=== PATIENT | male | born 1970 | race American Indian/Alaskan Native ===

== ENCOUNTER 2016-09-23 11:54 | Emergency (ER) | payer MEDICAID ==
[2016-09-23 12:00] VITALS: RESP 18
--- NOTE | 2016-09-23 13:35 | C.PDOC ---
History Of Present Illness 46 year old patient presents to the ED requesting detox from alcohol and heroin. Patient reports he snorts 2 bags a day of heroin and drink alcohol daily. His last use of heroin was 2 days ago and last drink of alcohol was last night. Patient denies fever, chills, chest pain, shortness of breath, nausea, vomiting or headache. Time Seen by Provider: 09/23/16 12:51 Chief Complaint (Nursing): Substance Abuse History Per: Patient History/Exam Limitations: no limitations Onset/Duration Of Symptoms: Other Suicide/Self Injury Attempted (Context): None Modifying Factor(s): Alcohol, Other (heroin) Severity: None Pain Scale Rating Of: 0 Recent travel outside of the [place]: No Past Medical History Reviewed: Historical Data, Nursing Documentation, Vital Signs Vital Signs: Last Vital Signs Temp 98 F 09/23/16 14:01 Pulse 70 09/23/16 14:01 Resp 18 09/23/16 14:01 BP 120/70 09/23/16 14:01 Pulse Ox 100 09/23/16 14:01 Family History: States: Unknown Family Hx - Social History Hx Alcohol Use: Yes Hx Substance Use: Yes - Immunization History Hx Tetanus Toxoid Vaccination: No Hx Influenza Vaccination: No Hx Pneumococcal Vaccination: No Review Of Systems Except As Marked, All Systems Reviewed And Found Negative. Constitutional: Negative for: Fever, Chills Cardiovascular: Negative for: Chest Pain Respiratory: Negative for: Shortness of Breath Gastrointestinal: Negative for: Nausea, Vomiting Neurological: Negative for: Headache Physical Exam - Physical Exam Appears: Non-toxic, No Acute Distress Skin: Warm, Dry Head: Atraumatic, Normacephalic Neck: Normal ROM, Supple Chest: Symmetrical Cardiovascular: Rhythm Regular Respiratory: No Accessory Muscle Use Back: Normal Inspection Extremity: Normal ROM Neurological/Psych: Oriented x3 ED Course And Treatment O2 Sat by Pulse Oximetry: 100 (room air) Pulse Ox Interpretation: Normal Progress Note: Crisis spoke to the patient at bedside. There are no detox beds available at this time. Phone number was given to call and make a reservation. A list of other detox facilities was also provided. Disposition - Disposition Disposition: HOME/ ROUTINE Disposition Time: 13:34 Condition: STABLE Additional Instructions: Follow up with detox as indicated by crisis team. Instructions: Opioid Dependence (ED) Forms: General Discharge Instructions - POA Present On Arrival: None - Clinical Impression Clinical Impression: Drug dependence - Scribe Statement The provider has reviewed the documentation as recorded by the Scribe Sheila Nettles All medical record entries made by the Scribe were at my direction and personally dictated by me. I have reviewed the chart and agree that the record accurately reflects my personal performance of the history, physical exam, medical decision making, and the department course for this patient. I have also personally directed, reviewed, and agree with the discharge instructions and disposition.
[2016-09-23 14:02] VITALS: BP 120/70; PULSE 70; TEMP 98; O2SAT 100
== END 2016-09-23 14:02 | disposition home or self-care (01) ==
LOC: C.ER 11:54
DX: F11.20 Opioid dependence, uncomplicated (principal)

== ENCOUNTER 2016-09-28 11:59 | Emergency (ER) | payer MEDICAID ==
[2016-09-28 12:16] VITALS: RESP 16
--- NOTE | 2016-09-28 12:54 | C.PDOC ---
History Of Present Illness 46-year-old male, presents to the emergency department requesting detox from alcohol. Patient denies any medical or psychiatric complaints at this time. Last drink was yesterday. Time Seen by Provider: 09/28/16 12:26 Chief Complaint (Nursing): Substance Abuse History Per: Patient History/Exam Limitations: no limitations Past Medical History Reviewed: Historical Data, Nursing Documentation, Vital Signs Vital Signs: Last Vital Signs Temp 98.6 F 09/28/16 13:12 Pulse 88 09/28/16 13:12 Resp 16 09/28/16 13:12 BP 123/65 09/28/16 13:12 Pulse Ox 96 09/28/16 14:10 Family History: States: Unknown Family Hx - Social History Hx Alcohol Use: Yes Hx Substance Use: Yes (heroin inh) - Immunization History Hx Tetanus Toxoid Vaccination: No Hx Influenza Vaccination: No Hx Pneumococcal Vaccination: No Review Of Systems Except As Marked, All Systems Reviewed And Found Negative. Constitutional: Negative for: Fever Cardiovascular: Negative for: Chest Pain Respiratory: Negative for: Shortness of Breath Gastrointestinal: Negative for: Vomiting Musculoskeletal: Negative for: Back Pain Psych: Negative for: Depression, Suicidal ideation Physical Exam - Physical Exam Appears: Non-toxic, No Acute Distress Head: Atraumatic Eye(s): bilateral: Normal Inspection Neck: Normal ROM Cardiovascular: Rhythm Regular Respiratory: Normal Breath Sounds Gastrointestinal/Abdominal: Normal Exam, Soft, No Tenderness Extremity: Normal ROM Extremity: Bilateral: Atraumatic Neurological/Psych: Oriented x3, Normal Speech Gait: Steady ED Course And Treatment O2 Sat by Pulse Oximetry: 96 Progress Note: Case was discussed w/ drug abuse worker, who states that there are no detox beds available. Patient made aware; Pt will be discharged w/ a list of detox programs, and information for the detox co-ordinator/instructions for pre- screening process. Patient is agreeable with plan. All questions answered. Disposition - Disposition Disposition: HOME/ ROUTINE Disposition Time: 12:52 Condition: STABLE Additional Instructions: Please call for detox beds [phone] Or cll other programs Return to ER if worse Instructions: Polysubstance Abuse (ED) - Clinical Impression Clinical Impression: Drug dependence - Scribe Statement The provider has reviewed the documentation as recorded by the Scriblilliam Frye All medical record entries made by the Scribe were at my direction and personally dictated by me. I have reviewed the chart and agree that the record accurately reflects my personal performance of the history, physical exam, medical decision making, and the department course for this patient. I have also personally directed, reviewed, and agree with the discharge instructions and disposition.
[2016-09-28 13:14] VITALS: BP 123/65; PULSE 88; TEMP 98.6
[2016-09-28 14:01] VITALS: O2SAT 96
== END 2016-09-28 13:12 | disposition home or self-care (01) ==
LOC: C.ER 11:59
DX: F19.20 Other psychoactive substance dependence, uncomplicated (principal)

== ENCOUNTER 2016-10-03 14:13 | Inpatient (IN) | payer MEDICAID ==
--- NOTE | 2016-10-03 14:38 | C.PDOC ---
History Of Present Illness A 46 year old male presents to the emergency room. Patient was pre-screened for detox. Patient admits to using heroine yesterday and ETOH this morning. Patient denies any active complaints. Time Seen by Provider: 10/03/16 14:30 Chief Complaint (Nursing): Substance Abuse History Per: Patient History/Exam Limitations: no limitations Onset/Duration Of Symptoms: Hrs Current Symptoms Are (Timing): Still Present Modifying Factor(s): Alcohol, Other (Heroine) Severity: None Associated Symptoms: denies: Depression, Suicidal Thoughts, Suicidal Plan Recent travel outside of the [place]: No Past Medical History Reviewed: Historical Data, Nursing Documentation, Vital Signs Vital Signs: Last Vital Signs Temp 97.8 F 10/03/16 17:07 Pulse 72 10/03/16 17:07 Resp 18 10/03/16 17:07 BP 133/80 10/03/16 17:07 Pulse Ox 99 10/03/16 17:07 Family History: States: Unknown Family Hx - Social History Hx Alcohol Use: Yes Hx Substance Use: Yes - Immunization History Hx Tetanus Toxoid Vaccination: No Hx Influenza Vaccination: No Hx Pneumococcal Vaccination: No Review Of Systems Except As Marked, All Systems Reviewed And Found Negative. Constitutional: Positive for: Other (Pre-screened for detox). Negative for: Fever, Chills Gastrointestinal: Negative for: Nausea, Vomiting, Diarrhea Physical Exam - Physical Exam Appears: Non-toxic Skin: Warm, Dry, No Rash Head: Atraumatic, Normacephalic Cardiovascular: Rhythm Regular Respiratory: Normal Breath Sounds, No Rales, No Rhonchi, No Wheezing Gastrointestinal/Abdominal: Soft, No Tenderness Extremity: Normal ROM, No Tenderness Neurological/Psych: Oriented x3, Normal Speech, Normal Cognition ED Course And Treatment - Laboratory Results Result Diagrams: 10/03/16 14:44 10/03/16 14:44 O2 Sat by Pulse Oximetry: 99 Medical Decision Making Medical Decision Making: Plan: -- Labs/Urinalysis pt medically cleared. Disposition - Disposition Disposition: HOSPITALIZED Disposition Time: 02:00 Condition: STABLE - Clinical Impression Clinical Impression: Opiate use, Alcohol use disorder - Scribe Statement The provider has reviewed the documentation as recorded by the Scribe Justin Orlando All medical record entries made by the Scribe were at my direction and personally dictated by me. I have reviewed the chart and agree that the record accurately reflects my personal performance of the history, physical exam, medical decision making, and the department course for this patient. I have also personally directed, reviewed, and agree with the discharge instructions and disposition. Decision To Admit - Pt Status Changed To: Hospital Disposition Of: Inpatient - Admit Certification Admit to Inpatient:: After my assessment, the patient will require hospitalization for at least two midnights. This is because of the severity of symptoms shown, intensity of services needed, and/or the medical risk in this patient being treated as an outpatient. - InPatient: Physician Admission Certification: I certify that this patient requires 2 or more midnights of care for the following reason:: pt needs detox - . Bed Request Type: Detox Admitting Physician: Karolina Olson Patient Diagnosis: Opiate use, Alcohol use disorder
[2016-10-03 14:52] LABS: BASO # 0.1 K/uL (0.0-0.2); BASO % 0.8 % (0.0-2.0); EOS # 0.2 K/uL (0.0-0.7); EOS % 2.4 % (0.0-4.0); HEMATOCRIT 42.1 % (35.0-51.0); LYMPH # 2.4 K/uL (1.0-4.3); LYMPH % 27.8 % (20.0-40.0); MEAN CORPUSCULAR HGB CONC 32.9 g/dL (33.0-37.0); MEAN PLATELET VOLUME 9.2 fL (7.2-11.7); MONO # 0.6 K/uL (0.0-0.8); MONO % 6.6 % (0.0-10.0); RED CELL DISTRIBUTION WIDTH 13.7 % (11.5-14.5); WHITE BLOOD COUNT 8.6 K/uL (4.8-10.8)
[2016-10-03 14:59] LABS: RBC URINE < 1 /hpf (0-3); URINE BILIRUBIN NEGATIVE (NEGATIVE); URINE BLOOD NEGATIVE (NEGATIVE); URINE COLOR Yellow (YELLOW); URINE GLUCOSE (UA) NORMAL (Normal); URINE KETONE NEGATIVE (NEGATIVE); URINE LEUKOCYTE ESTERASE NEG Leu/uL (Negative); URINE PROTEIN NEGATIVE (NEGATIVE); URINE UROBILINOGEN NORMAL mg/dL (0.2-1.0); WBC URINE 1 /hpf (0-5)
[2016-10-03 15:23] LABS: CHLORIDE 105 mmol/L (98-107); POTASSIUM 4.4 mmol/L (3.6-5.2); SODIUM 140 mmol/L (132-148)
[2016-10-03 15:25] LABS: BILIRUBIN,TOTAL 0.7 mg/dL (0.2-1.3); CARBON DIOXIDE 23 mmol/L (22-30); GFR AFRICAN-AMERICAN > 60
[2016-10-03 15:26] LABS: ALB/GLOB RATIO 1.2 (1.0-2.1); ALCOHOL SERUM 17 mg/dl (0-10); ALKALINE PHOSPHATASE 47 U/L (38-126); ALT/SGPT 32 U/L (21-72); AST/SGOT 33 U/L (17-59); BLOOD UREA NITROGEN 14 mg/dL (9-20); CALCIUM 8.5 mg/dl (8.6-10.4); GLUCOSE,RANDOM 120 mg/dL (75-110); TOTAL PROTEIN 6.9 g/dL (6.3-8.3)
[2016-10-03] MEDS ORDERED: Aluminum Hydroxide/Magnesium Hydroxide Susp (30 mL) PO PRN (19:24)
--- NOTE | 2016-10-05 01:34 | PCM.PSYCH ---
Initial Psychiatric Evaluation - Initial Psychiatric Evaluation Legal Status: Capacity Chief Complaint (in patient's own words): i am glad i got a bed! Patient's Reaction to Hospitalization: i know i needed help History of Present Illness and Precipitating Events: Pt is a 46 nyear oldv single,domiciled, currently unemployed male who abuses heroin and alcohol. Pt started drinking age 17 and alcohol became a problem age 21. He usually drinks 8-12 24 ounce cans of beer a day and severalshots of hard liquor. Pt uses crack/cocaine and started using about age 29. He spends 400-500 dollars a week. pt started using heroin last year. his girlfiend introduced him to the substance. Pt has been at [facility] and [facility] as well as [facility]. He graduated from the [employer] program last year.Pt went up to 11th grade. He usually works retail. pt has 4 children with different partners. His youngest child is 2 years old. His parents are living. He has 1 brother and 3 sisters. he is r4th in the sibship of 5. Pt denies any family history of mental illness or substance abuse. pt has no psych history. pt has been arrested various times for possession of CDS. Current Medications: Active Medications Generic Name Dose Route Start Last Admin Trade Name Freq PRN Reason Stop Dose Admin Al Hydrox/Mg Hydrox/Simethicone 30 ml 10/03/16 19:24 Maalox 30 Ml PO TID PRN Indigestion / Heartburn Chlordiazepoxide 25 mg 10/04/16 09:42 10/05/16 00:54 Librium PO 10/08/16 09:41 Not Given Q6 ENID Taper Clonidine HCl 0.1 mg 10/03/16 19:24 Catapres PO Q8 PRN COWS Score More or Equal to 5 Gabapentin 300 mg 10/03/16 20:00 10/04/16 17:05 Neurontin PO 300 mg TID ENID Administration Hydroxyzine HCl 50 mg 10/03/16 19:24 Atarax PO Q6H PRN Anxiety Ibuprofen 600 mg 10/03/16 19:24 Motrin Tab PO Q6H PRN Pain, moderate (4-7) Loperamide HCl 2 mg 10/03/16 19:24 Imodium PO Q8 PRN Diarrhea Ondansetron HCl 4 mg 10/03/16 19:24 Zofran Tab PO Q8 PRN Nausea/Vomiting Trazodone HCl 100 mg 10/03/16 19:24 Desyrel PO HS PRN Insomnia Past Psychiatric History - Past Psychiatric History Previous Treatment History: None Pertinent Medical Hx (Current Medical&Sleep Prob, Allergies): Allergies Allergy/AdvReac Type Severity Reaction Status Date / Time No Known Allergies Allergy Verified 10/03/16 14:16 No Known Home Med 09/23/16 Review of Systems - Constitutional Constitutional: Chills, Sweats, Malaise - EENT Eyes: UNREMARKABLE Ears: UNREMARKABLE Nose/Mouth/Throat: UNREMARKABLE - Cardiovascular Cardiovascular: UNREMARKABLE - Respiratory Respiratory: UNREMARKABLE - Gastrointestinal Gastrointestinal: Diarrhea - Genitourinary Genitourinary: UNREMARKABLE - Reproductive: Male Reproductive:Male: UNREMARKABLE - Musculoskeletal Musculoskeletal: Arthralgias, Myalgias - Integumentary Integumentary: UNREMARKABLE - Neurological Neurological: UNREMARKABLE - Psychiatric Psychiatric: UNREMARKABLE - Hematologic/Lymphatic Hematologic: UNREMARKABLE Mental Status Examination - Personal Presentation Personal Presentation: Looks stated age - Affect Affect: Constricted - Motor Activity Motor Activity: Calm - Reliability in Providing Information Reliability in Providing Information: Good - Speech Speech: Organized, Coherent - Mood Mood: Anxious - Formal Thought Process Formal Thought Process: No Impairment - Obsessions/Compulsions Obsessions: No Compulsions: No - Cognitive Functions Orientation: Person, Place, Situation, Time Sensorium: Alert Attention/Concentration: Attentive Abstract Thinking: As evidence by literal perception of proverbs Estimate of Intelligence: Average Judgement: Intact, as evidence by: Good judgement Memory: Recent intact, as evidence by: 3/3 object recall, Remote intact, as evidenced by: Ability to recall historical events - Risk Risk: Withdrawal - Strength & Assets Inventory Strength & Assets Inventory: Intelligence, Employment history - Limitations Limitations: Other Additional comments: unemployment DSM 5 DX - DSM 5 DSM 5 Diagnosis: alcohol use disorder severe alcohol withdrawal cocaine use disorder severe - Recommended/Plan of Treatment Treatment Recommendations and Plan of Treatment: alcohol withdrawal librium protocol alcohol use disorfer- group milieu and recreational therapy, mi cbt and individual supportive psychotherapy cocaine use disorder group, milieu and recreational therapy HI CBT individual supportive psychotherapy Projected ELOS: 5 days Prognosis: good with treatment Discharge Plan and Discharge Criteria: [facility] no acute signs of withdrawal - Smoking Cessation Smoking Cessation Initiated: No
[2016-10-05 15:53] VITALS: RESP 18
--- NOTE | 2016-10-05 21:25 | PCM.PYCHPN ---
Psychiatric Progress Note - Psychiatric Progress Note Patient seen today, length of contact: 15 min Patient Chief Complaint: i feel awful Problems Identified/Issues Discussed: withdrawal symptoms. Post Acute withdrawal syndrome after care [facility] Medical Problems: nothing acute Diagnostic Results: reviewed DSM 5 Symptoms Update: reviewed body aches improved sleeping Medication Change: Yes (taper) Medical Record Reviewed: Yes Mental Status Examination - Cognitive Function Orientation: Person, Place, Time Memory: Intact Attention: WNL Concentration: WNL Association: WNL - Mood Mood: Anxious - Affect Affect: Constricted - Speech Speech: Appropriate - Formal Thought Process Formal Thought Process: No Impairment - Suicidal Ideation Suicidal Ideation: No - Homicidal Ideation Homicidal Ideation: No Goal/Treatment Plan - Goal/Treatment Plan Need for Continued Stay: Discharge may exacerbated symptoms Progress Toward Problem(s) and Goals/Treatment Plan: alcohol withdrawal librium protocol alcohol use disorfer- group milieu and recreational therapy, mi cbt and individual supportive psychotherapy cocaine use disorder group, milieu and recreational therapy OR CBT individual supportive psychotherapy Estimated Date of D/C: 10/07/16 - Smoking Cessation Smoking Cessation Initiated: No
--- NOTE | 2016-10-07 00:44 | PCM.PYCHPN ---
Psychiatric Progress Note - Psychiatric Progress Note Patient seen today, length of contact: 15 min Patient Chief Complaint: "Tired, back pain" Problems Identified/Issues Discussed: The pt is seen, chart reviewed, case discussed with staff. The pt is compliant with medications and reports no side-effects. Symptoms are improving but needs more time to stabilize. After care discussed, support and psychoeducation given. UT and CBT used briefly. Medication Change: Yes (taper) Medical Record Reviewed: Yes Mental Status Examination - Cognitive Function Orientation: Person, Place, Time Memory: Intact Attention: WNL Concentration: WNL Association: WNL - Mood Mood: Anxious - Affect Affect: Constricted - Speech Speech: Appropriate - Formal Thought Process Formal Thought Process: No Impairment - Suicidal Ideation Suicidal Ideation: No - Homicidal Ideation Homicidal Ideation: No Goal/Treatment Plan - Goal/Treatment Plan Need for Continued Stay: Discharge may exacerbated symptoms Progress Toward Problem(s) and Goals/Treatment Plan: Continue medications Support and psychoeducation daily Attend groups and activities daily After care planning - [facility] Estimated Date of D/C: 10/07/16
--- NOTE | 2016-10-07 08:52 | PCM.PYCHDC ---
Mental Status Examination - Mental Status Examination Orientation: Person, Place, Situation, Time Memory: Intact Mood: Anxious Affect: Broad Speech: Appropriate Attention: WNL Concentration: WNL Association: WNL Fund of Knowledge: WNL Formal Thought Process: No Impairment Suicidal Ideation: No Current Homicidal Ideation?: No Discharge Summary - Discharge Note Reason for Hospitalization: Heroin and alcohol detox Consultations:: List each consultation separately and include: 1. Reason for request. 2. Findings. 3. Follow-up Summary of Hospital Course include:: 1. Description of specific treatment plan utilized for patients during their course of treatmen. 2. Summarize the time- course for resolution of acute symptoms and/or regressed behaviors. 3. Describe issues identified and worked on during hospitalization. 4. Describe medication utilized. 5. Describe medical problems identified and treated. 6. Reassessment of suicide risk Summary of Hospital Course: Hospital course: The pt was admitted and started on treatment with psychotherapy, support, psychoeducation and medications. OR and CBT used. The pt attended groups and activities, as well as milieu therapy. All the risks and benefits of medications are discussed and the patient understood and agreed. After care discussed with the patient and he chose to go to [facility] - Final Diagnosis (DSM 5) Condition upon Discharge: STABLE DSM 5: Alcohol use d/o - severe Alcohol withdrawal Opioid withdrawal Opioid use d/o - severe Cocaine use d/o - moderate Disposition: REHAB FACILITY/REHAB UNIT Follow-up Treatment Plan: Continue below medications after discharge. Follow after care plan as discussed, at [facility] Use relapse prevention skills Return to ER or call 911 if suicidal, homicidal or symptoms relapse. Stay away from stress, alcohol and drugs. Prescriptions/Medication Reconciliation: Gabapentin [Neurontin] 300 mg PO TID #90 cap traZODone [Desyrel] 100 mg PO HS PRN #30 tab PRN Reason: Insomnia - Smoking Cessation Smoking Cessation Medication prescribed: No - Antipsychotic Medications Pt discharged on 2 or more routine antipsychotic medications: No
[2016-10-07 09:55] VITALS: BP 107/60; PULSE 84; TEMP 97.9; O2SAT 100
== END 2016-10-07 10:45 | DRG 745 ==
LOC: C.ER 14:13 → C.7D 15:58
PROVIDERS: ADMIT Psychiatry & Neurology Psychiatry; ATTEND Psychiatry & Neurology Psychiatry
PROC: HZ2ZZZZ Detoxification Services for Substance Abuse Treatment (ICD-10-PCS; principal; 2016-10-03)
PROC: HZ52ZZZ Individual Psychotherapy for Substance Abuse Treatment, Cognitive-Behavioral (ICD-10-PCS; 2016-10-03)
PROC: HZ59ZZZ Individual Psychotherapy for Substance Abuse Treatment, Supportive (ICD-10-PCS; 2016-10-03)
PROC: HZ56ZZZ Individual Psychotherapy for Substance Abuse Treatment, Psychoeducation (ICD-10-PCS; 2016-10-03)
DX: F10.230 Alcohol dependence with withdrawal, uncomplicated (principal); F11.23 Opioid dependence with withdrawal; F14.90 Cocaine use, unspecified, uncomplicated